=== PATIENT | male | born 1975 | race Caucasian/White ===

== ENCOUNTER → 2024-07-08 | Outpatient (CLI) | payer BC ==
--- NOTE | 2024-07-08 12:50 | MR ---
EXAMINATION TYPE: MR cspine/lspine wo con DATE OF EXAM: 07/08/2024 COMPARISON: NONE HISTORY: Neck pain, limited ROM, RUE weakness, LBP, hx injuries. Spondylosis with radiculopathy. TECHNIQUE: Multiplanar, multisequence imaging of the cervical and lumbar spine are performed without IV contrast. FINDINGS: C-SPINE: Sagittal images of the cervical spine show the craniocervical junction to appear within normal limits . The cervical and upper thoracic spinal cord is normal in course, caliber, and signal. Vertebral a lignment is straightened with multilevel subtle spondylolisthesis. The vertebral body heights are no rmal. There is moderate disc space narrowing at C5-C6 and C6-C7 levels with Modic type I endplate ch anges. Axial images show C2-C3 level to appear Within normal limits. Axial images at C3-C4 level shows broad-based posterior disc protrusion mildly effacing anterior thec al sac and causing moderate left and mild right-sided neural foraminal narrowing. Axial images at C4-C5 level appear within normal limits. Axial images at C5-C6 level show broad-based right paracentral disc protrusion effacing the anterolat eral thecal sac and causing moderate right-sided neural foraminal narrowing. Axial images at C6-C7 level showed broad based posterior disc protrusion mildly effacing the anterior thecal sac and causing moderate bilateral neural foraminal narrowing. Axial images at C7-T1 level appear within normal limits. IMPRESSION: Multilevel degenerative changes in the cervical spine as detailed above. L-SPINE: Sagittal images of the lumbar spine show vertebral body heights to appear satisfactory. Alignment is straightened. There is multilevel disc desiccation L2-L3 through the L5-S1 levels. There is moderate disc space narrowing at L3-L4 level. There is moderate to severe disc space narrowing at L4-L5 and L5 -S1 levels with heterogeneous fluid type I endplate changes. The conus medullaris is normal in posit ion and signal ending at mid L1 level. Axial images at T12-L1 and L1-L2 levels appear within normal limits. Axial images at L2-L3 level shows a left paracentral disc protrusion mildly effacing the anterolatera l thecal sac. Patent bilateral neural foramina. Axial images at L3-L4 level shows mild broad-based disc bulge with left paracentral disc protrusion e ffacing the anterolateral thecal sac. Patent bilateral neural foramina. Axial images at L4-L5 level show mild/moderate facet arthropathy and ligamentum flavum hypertrophy. T here is mild broad disc bulge minimally effacing the anterior thecal sac. There is mild to moderate b ilateral neural foraminal narrowing. Axial images at L5-S1 level show mild facet arthropathy. There is focal central spur disc complex but the spinal canal is preserved as there is increased epidural fat at this level. There is mild-to-mod erate bilateral neural foraminal narrowing seen. Paraspinal muscle bulk is maintained. IMPRESSION: Straightening of the lumbar spine with multilevel degenerative change in the mid to lower lumbar spine as detailed above. [facility], , 07/08/2024 12:48 PM
== END | disposition home or self-care (01) ==
LOC: RADMRIMAIN 10:57
PROVIDERS: ATTEND Orthopaedic Surgery
DX: M47.22 Other spondylosis with radiculopathy, cervical region (principal); M47.26 Other spondylosis with radiculopathy, lumbar region; M51.16 Intervertebral disc disorders with radiculopathy, lumbar region; M99.73 Connective tissue and disc stenosis of intervertebral foramina of lumbar region; M50.11 Cervical disc disorder with radiculopathy, high cervical region; M99.71 Connective tissue and disc stenosis of intervertebral foramina of cervical region
CPT/HCPCS: 72141; 72148